=== PATIENT | female | born 2005 | race Caucasian/White ===

== ENCOUNTER → 2025-05-08 | Outpatient (CLI) | payer BC | END | disposition home or self-care (01) | LOC: MRI 05-01 08:00 | PROVIDERS: ATTEND Internal Medicine | DX: S83.242A Other tear of medial meniscus, current injury, left knee, initial encounter (principal); M25.462 Effusion, left knee; M25.562 Pain in left knee; X58.XXXA Exposure to other specified factors, initial encounter; Y93.89 Activity, other specified; Y92.89 Other specified places as the place of occurrence of the external cause; Y99.8 Other external cause status ==